=== PATIENT | female | born 1940 | race Caucasian/White ===

== ENCOUNTER 2018-12-07 14:39 | Outpatient (RCR) | payer MEDICARE | END 2019-01-08 09:28 | disposition home or self-care (01) | PROVIDERS: ATTEND Obstetrics & Gynecology | DX: M79.18 Myalgia, other site (principal); N39.46 Mixed incontinence ==

== ENCOUNTER 2020-06-27 13:31 | Outpatient (RCR) | payer MEDICARE, BC | END 2020-06-27 17:08 | disposition home or self-care (01) | PROVIDERS: ATTEND Obstetrics & Gynecology | DX: M79.18 Myalgia, other site (principal); N34.3 Urethral syndrome, unspecified; R39.9 Unspecified symptoms and signs involving the genitourinary system; R39.14 Feeling of incomplete bladder emptying ==

== ENCOUNTER 2021-08-19 20:06 | Emergency (ER) | payer MEDICARE, BC ==
[~2021-08-19] VITALS: Ht 165 cm; Wt 84.0 kg
[2021-08-19 20:41] LABS: BASOPHILS # (AUTO) 0.1 10^3/uL (0.0-0.1); BASOPHILS % (AUTO) 1 % (0-10); EOSINOPHILS # (AUTO) 0.2 10^3/uL (0.0-0.3); EOSINOPHILS % (AUTO) 3 % (0-10); HEMATOCRIT 42 % (35-52); HEMOGLOBIN 13.9 g/dL (11.5-16.0); LYMPHOCYTES % (AUTO) 31 % (12-44); MEAN CORPUSCULAR HEMOGLOBIN 29 pg (25-34); MEAN CORPUSCULAR HGB CONC 33 g/dL (32-36); MEAN CORPUSCULAR VOLUME 87 fL (80-99); MEAN PLATELET VOLUME 9.3 fL (9.0-12.2); MONOCYTES # (AUTO) 0.9 10^3/uL (0.0-1.0); MONOCYTES % (AUTO) 14 % (0-12); NEUTROPHILS # (AUTO) 3.2 10^3/uL (1.8-7.8); NEUTROPHILS % (AUTO) 51 % (42-75); PLATELET COUNT 351 10^3/uL (130-400); WHITE BLOOD COUNT 6.3 10^3/uL (4.3-11.0)
--- NOTE | 2021-08-19 21:01 | ED Cardiac General ---
History of Present Illness General Chief Complaint: Cardiac/General Problems Stated Complaint: HIGH BLOOD PRESSURE Nursing Triage Note: TO ED VIA POV AND AMBULATORY TO ROOM 6 WITH C/O HIGH BLOOD PRESSURE. PT STATES IT HAS BEEN HIGH SINCE BROTHER IN FROM HEART ATTACK. PT VERY ANXIOUS ABOUT BP AND HAVING A STROKE. STATES SHE HAS BEEN SEEING "DR. PAYNE" IN [facility] AND HE HAS BEEN ADJUSTING BP MEDS. PT SEES DR. AU FOR CARDIOLOGY IN [place], [place] BUT HAS NOT BEEN SEEN RECENTLY FOR BP WITH CARDIO. Source: patient Exam Limitations: no limitations History of Present Illness Date Seen by Provider: Aug 19, 2021 Time Seen by Provider: 20:39 Initial Comments This is a 81-year-old female who presented to the ER with concerns of elevated blood pressure. States she has been having increasing problems with her blood pressure. Had been taking Losartan 100mg PO daily. States she was recently taken off her Losartan and started on propanolol 40 mg p.o. twice daily 3 weeks ago. Was recently switched from Proponolol to Coreg 6.25 mg p.o. twice daily yesterda y. States that her blood pressure is continuing to elevate despite taking her antihypertensives. She was also given clonidine 0.1 mg p.o. every 6 as needed. States that whenever she takes a clonidine her blood pressure will drop to around SBP 140s however it spikes right back up. States that her brother just in June from a heart attack and her father has in the past from a stroke. High blood pressure runs in her family and she is concerned that she is going to have a heart attack or stroke if her blood pressure continues to stay this high. Has no physical complaints at this time. Allergies and Home Medications Allergies Coded Allergies: codeine (Verified Adverse Reaction, Unknown, Nausea, 08/19/21) Uncoded Allergies: PENICILLIN (Allergy, Unknown, Hives, 08/19/21) Patient Home Medication List Home Medication List Reviewed: Yes Review of Systems Review of Systems Constitutional: no symptoms reported EENTM: No Symptoms Reported Respiratory: No Symptoms Reported Cardiovascular: No Symptoms Reported Gastrointestinal: No Symptoms Reported Genitourinary: No Symptoms Reported Musculoskeletal: no symptoms reported Skin: no symptoms reported Psychiatric/Neurological: Headache (occasionally ) Endocrine: No Symptoms Reported Hematologic/Lymphatic: No Symptoms Reported Past Fxdcdjk-Dngitn-Rxrpof Hx Patient Social History Tobacco Use?: No Substance use?: No Alcohol Use?: Yes Alcohol Frequency: Once in a while Pt feels they are or have been: No Immunizations Up To Date COVID19 Vaccine Tool Room Machinist: MODERNAbby Past Medical History Surgery/Hospitalization HX: HTN ORTHO HYSTERECTOMY Physical Exam Vital Signs Vital Signs - First Documented 08/19/21 20:13 Temp 36.0 Pulse 74 Resp 20 B/P (MAP) 206/115 (145) Pulse Ox 99 O2 Delivery Room Air Capillary Refill : Less Than 3 Seconds Height, Weight, BMI Height: '" Weight: lbs. oz. kg; 30.00 BMI Method: General Appearance: No Apparent Distress, Anxious HEENT: PERRL/EOMI, Normal ENT Inspection, Pharynx Normal Neck: Full Range of Motion, Normal Inspection, Supple; No Carotid Bruit Respiratory: Lungs Clear, Normal Breath Sounds, No Accessory Muscle Use, No Respiratory Distress Cardiovascular: Regular Rate, Rhythm, No Edema, Normal Peripheral Pulses Gastrointestinal: Normal Bowel Sounds, No Organomegaly, Non Tender, Soft Extremity: Normal Capillary Refill, Normal Inspection, Normal Range of Motion Neurologic/Psychiatric: Alert, Oriented x3, No Motor/Sensory Deficits, Normal Mood/Affect, curtain roller assembler II-XII Norm as Tested Skin: Normal Color, Warm/Dry Progress/Results/Core Measures Results/Orders Lab Results Laboratory Tests Test 08/19/21 20:35 Range/Units White Blood Count 6.3 4.3-11.0 10^3/uL Red Blood Count 4.81 3.80-5.11 10^6/uL Hemoglobin 13.9 11.5-16.0 g/dL Hematocrit 42 35-52 % Mean Corpuscular Volume 87 80-99 fL Mean Corpuscular Hemoglobin 29 25-34 pg Mean Corpuscular Hemoglobin Concent 33 32-36 g/dL Red Cell Distribution Width 13.0 10.0-14.5 % Platelet Count 351 130-400 10^3/uL Mean Platelet Volume 9.3 9.0-12.2 fL Immature Granulocyte % (Auto) 0 % Neutrophils (%) (Auto) 51 42-75 % Lymphocytes (%) (Auto) 31 12-44 % Monocytes (%) (Auto) 14 H 0-12 % Eosinophils (%) (Auto) 3 0-10 % Basophils (%) (Auto) 1 0-10 % Neutrophils # (Auto) 3.2 1.8-7.8 10^3/uL Lymphocytes # (Auto) 2.0 1.0-4.0 10^3/uL Monocytes # (Auto) 0.9 0.0-1.0 10^3/uL Eosinophils # (Auto) 0.2 0.0-0.3 10^3/uL Basophils # (Auto) 0.1 0.0-0.1 10^3/uL Immature Granulocyte # (Auto) 0.0 0.0-0.1 10^3/uL Sodium Level 133 L 135-145 MMOL/L Potassium Level 3.9 3.6-5.0 MMOL/L Chloride Level 101 98-107 MMOL/L Carbon Dioxide Level 20 L 21-32 MMOL/L Anion Gap 12 5-14 MMOL/L Blood Urea Nitrogen 16 7-18 MG/DL Creatinine 1.15 0.60-1.30 MG/DL Estimat Glomerular Filtration Rate 46 BUN/Creatinine Ratio 14 Glucose Level 99 70-105 MG/DL Calcium Level 9.4 8.5-10.1 MG/DL Corrected Calcium 9.4 8.5-10.1 MG/DL Total Bilirubin 0.5 0.1-1.0 MG/DL Aspartate Amino Transf (AST/SGOT) 16 5-34 U/L Alanine Aminotransferase (ALT/SGPT) 14 0-55 U/L Alkaline Phosphatase 60 40-136 U/L Total Protein 6.9 6.4-8.2 GM/DL Albumin 4.0 3.2-4.5 GM/DL My Orders Orders - PRECIOUS PINA AUTO PARTS SALESPERSON Cbc With Automated Diff (08/19/21 20:31) Comprehensive Metabolic Panel (08/19/21 20:31) Ekg Tracing (08/19/21 20:31) Lorazepam Injection (Ativan Injection) (08/19/21 21:15) Medications Given in ED Vital Signs/I&O 08/19/21 08/19/21 20:13 23:17 Temp 36.0 36.0 Pulse 74 69 Resp 20 16 B/P (MAP) 206/115 (145) 164/88 Pulse Ox 99 100 O2 Delivery Room Air Room Air Blood Pressure Mean: 145 Progress Progress Note : Progress Note Patient examined, appears very anxious at this time. Discussed treating her with a little bit of anxiety medication and then checking to see if we need to add anything for her blood pressure. BP is 206/115 at this time. Will obtain basic labs and EKG. She is agreeable with this plan. EKG is sinus rhythm, no ST elevation or depression appreciated. Her labs are unremarkable. After given Ativan 0.5 mg IV push she appears more relaxed. Also discussed with her that her primary care provider was likely adding the beta- krunal to her current antihypertensive regimen, and she should be taking her Losartan along with her Coreg. Went ahead and had patient take her losartan 100 mg and Coreg 6.25 mg p.o. now here in the ER. We will continue to monitor her blood pressure. Systolic Blood pressure decreased to around 140 while at rest. Discharge plan of care discussed with patient and recommendations for close follow-up with her primary care provider, additionally may benefit from a renal ultrasound as she has not had this yet, and would like her to take her losartan daily along with her Coreg twice daily and continue to monitor her blood pressure. Discussed that her BP could also be related to stress and anxiety especially with the recent of her brother. States that she agrees with this as she has tended to fixate on her blood pressure since his passing. Initial ECG Impression Date: Aug 19, 2021 Initial ECG Impression Time: 20:36 Initial ECG Rate: 64 Initial ECG Rhythm: Normal Sinus Initial ECG Impression: Normal Departure Impression Primary Impression: Hypertension Additional Impression: Anxiety Disposition: 01 HOME, SELF-CARE Condition: Improved Departure-Patient Inst. Decision time for Depature: 22:53 Referrals: ALLISON MADRID DO (PCP) Primary Care Physician Patient Instructions: High Blood Pressure ED Add. Discharge Instructions: Plan: 1. Call your doctor tomorrow to schedule close follow up. 2. Take your Losartan every evening and your Coreg twice a day. Check your blood pressure twice a day and keep a log. 3. You may benefit from a renal ultrasound to further evaluate your hypertension. 4. Limit your foods with salt. You can choose foods that are "low sodium". 5. Return to ER for any new, concerning, or worsening symptoms. All discharge instructions reviewed with patient and/or family. Voiced understanding. PRECIOUS PINA APRN Aug 19, 2021 21:01
[2021-08-19 21:10] LABS: POTASSIUM 3.9 MMOL/L (3.6-5.0)
[2021-08-19 21:12] LABS: CALCIUM 9.4 MG/DL (8.5-10.1)
[2021-08-19 21:13] LABS: TOTAL PROTEIN 6.9 GM/DL (6.4-8.2)
[2021-08-19 21:15] LABS: BILIRUBIN,TOTAL 0.5 MG/DL (0.1-1.0)
[2021-08-19] MEDS ORDERED: LORazepam INJ 2 MG/ML (ATIVAN) VIAL IVP ONE (21:15)
[2021-08-19 21:16] LABS: CREATININE SERUM 1.15 MG/DL (0.60-1.30)
[2021-08-19 23:17] VITALS: BP 164/88
--- OUTSIDE RECORDS SUMMARY | 2021-08-24 10:19 | XMS REPORT ---
Author Leticia Rodas Organization [facility] Address [address] [place], [place] [id number] Care Team Providers Care Electrical Control Assembler Name Role Phone ISHA PINA PCP ISHA PINA PreferredProvider Allergies and Adverse Reactions Not available. Plan of Treatment Not available. Medications Active Name Start Date Estimated Completion Date SIG Co mments fluticasone propionate 50 mcg/actuation nasal spray,suspension 1 10/27/2019 spray 1 spray (50 mcg) in each nostril by intranasal route once daily propranolol 40 mg oral tablet 08/06/2021 09/05/2021 ta ke 1 tablet (40 mg) by oral route 2 times per day for 30 days PROPRANOLOL 40MG TABLETS 08/06/2021 05/03/2022 TAKE 1 TABLET(40 MG) BY MOUTH TWICE DAILY Problem List Description Status Onset Essential hypertension Active 08/06/2021 Family history of heart disease Active 08/06/20 21 Primary insomnia Active 08/06/2021 Vital Signs Date Time BP-Sys(mm[Hg] BP-Marline(mm[Hg]) HR(bpm) RR(rpm) Temp WT HT HC BMI BSA BMI Percentile O2 Sat(%) 08/05/2021 3:33:00 PM 186 mm[Hg] 100 mm[Hg] 70 {beats}/min 18 rpm 98 F 1 87 lbs 98 % Social History Not available. History of Procedures Date Ordered Description Order Status 04/16/2020 12:00 AM SARS-CoV-2 non-CDC lab test Returned 11/14/2020 12:00 AM Moderna Covid-19 Vaccine Reviewed 12/12/2020 12:00 AM Moderna Covid-19 Vaccine Reviewed 08/07/2021 12:00 AM COMPLETE CBC W/AUTO DIFF WBC Returned 08/07/2021 12:00 AM COMPREHEN METABOLIC PANEL Returned 08/07/2021 12:00 AM LIPID PANEL Returned 08/07/2021 12:00 AM COLLECTION VENOUS BLOOD VENIPUNCTURE Rev iewed 08/07/2021 12:00 AM ASSAY THYROID STIM HORMONE Returned Results Summary Not available. History Of Immunizations Name Date Admin Mfg Name Mfg Code Trade Name Lot# Route Inj Vis Given Vis Pub CVX Covid-19 11/14/2020 [employer] MOD Moderna COVID-19 Vaccin e [id number] Intramuscular Left Deltoid 11/14/2020 09/02/2020 207 Covid-19 12/12/2020 Moderna [employer] MOD Moderna COVID-19 Vaccin e [id number] Intramuscular Left Deltoid 12/12/2020 09/02/2020 207 History of Past Illness Name Date of Onset Comments Essential hypertension 08/06/2021 Family history of heart disease 08/06/2021 Primary insomnia 08/06/2021 Close exposure to severe acute respiratory syndrome co ronavirus 2 (SARS-CoV-2) Apr 16 2020 9:28AM Nasal congestion Aug 27 2020 8:23AM Encounter for administration of COVID-19 vaccine Nov 14 2020 12:31PM Encounter for administration of COVID-19 vaccine Dec 12 2020 11:38AM Establishing care with new doctor, encounter for Aug 05 2021 3:35PM Essential hypertension Aug 05 2021 3:35PM Family history of heart disease Aug 05 2021 3:35PM Mild Acute Tremor of both hands Aug 05 2021 3:35PM Primary insomnia Aug 05 2021 3:35PM Care plan discussed with patient Aug 05 2021 3:35PM Tremor Aug 07 2021 9:43AM Hypertension Aug 07 2021 9:43AM Hyperlipemia Aug 07 2021 9:43AM Payers Insurance Name Company Name Plan Name Plan Number Policy Number Liban cy Group Number Start Date Medicare RHC Medicare RHC [id number] N/ A [facility] [id number] N/ A Medicare Part A Medicare - Lab/Xray [id number] N/A Medicare Part B Medicare Of [place] [id number] N/A History of Encounters Visit Date Visit Type Provider 08/07/2021 Laboratory ISHA RUEDA 08/05/2021 Office visit ISHA RUEDA 12/12/2020 Nurse visit ISHA RUEDA 11/14/2020 Nurse visit ISHA RUEDA 08/27/2020 Office visit John Clark PHARMACY TECHNICIAN PROGRAM DIRECTOR 04/16/2020 Nurse visit Tanya PARIKH RN 07/26/2016 Osmar Jaimes MD
--- OUTSIDE RECORDS SUMMARY | 2021-08-24 10:19 | XMS REPORT ---
Author Leticia Rodas [facility] Address [address] [place], [place] [address] Care Team Providers Care Electronic Page Makeup System Operator Name Role Phone ISHA PINA PCP Allergies and Adverse Reactions Not available. Plan of Treatment Not available. Medications Active Name Start Date Estimated Completion Date SIG Co mments fluticasone propionate 50 mcg/actuation nasal spray,suspension 1 10/27/2019 spray 1 spray (50 mcg) in each nostril by intranasal route once daily propranolol 40 mg oral tablet 08/05/2021 09/04/2021 ta ke 1 tablet (40 mg) by oral route 2 times per day for 30 days Problem List Description Status Onset Essential hypertension [...] 12/12/2020 12:00 AM Moderna Covid-19 Vaccine Reviewed Results Summary Not available. History Of Immunizations Name Date Admin Mfg Name Mfg Code Trade Name Lot# Route Inj Vis Given Vis Pub CVX Covid-19 11/14/2020 Moderna [employer] MOD Moderna COVID-19 Vaccin e [id number] Intramuscular Left Deltoid 11/14/2020 09/02/2020 207 Covid-19 12/12/2020 [employer] MOD Moderna COVID-19 Vaccin e [id number] Intramuscular Left Deltoid 12/12/2020 09/02/2020 207 History [...] discussed with patient Aug 05 2021 3:35PM Payers Insurance Name Company Name Plan Name Plan Number Policy Number Liban cy Group Number Start Date Medicare RHC Medicare RHC [id number] N/ [id number] N/ A Medicare Part A Medicare - Lab/Xray [id number] N/A Medicare Part B Medicare Of [place] [id number] N/A History of Encounters Visit Date Visit Type Provider 08/05/2021 Office visit ISHA RUEDA 12/12/2020 Nurse visit ISHA RUEDA 11/14/2020 Nurse visit ISHA RUEDA 08/27/2020 Office visit John Clark POLE LIFT OPERATOR 04/16/2020 Nurse visit Tanya PARIKH RN 07/26/2016 Osmar Jaimes MD
--- OUTSIDE RECORDS SUMMARY | 2021-08-24 10:19 | XMS REPORT ---
Author Leticia Rodas [facility] Address [address] [place], [place] [id number] Care Team Providers Care Transcriptionist Name Role Phone ISHA PINA PCP ISHA PINA PreferredProvider Allergies and Adverse Reactions Not available. Plan of Treatment Planned Activity Comments Planned Date Planned Time Plan/Goal CBC with Differential 08/07/2021 12:00 AM CMP 08/07/2021 12:00 AM Lipid Blood Profile 08/07/2021 12:00 AM TSH W/RFLX T4 FREE 08/07/2021 12:00 AM Medications Active Name Start Date Estimated Completion [...] Moderna Covid-19 Vaccine Reviewed 08/07/2021 12:00 AM COLLECTION VENOUS BLOOD VENIPUNCTURE Rev iewed Results Summary Not available. History Of Immunizations Name Date Admin Mfg Name Mfg Code Trade Name Lot# Route Inj Vis Given Vis Pub CVX Covid-19 11/14/2020 [employer] MOD Moderna COVID-19 Vaccin e [id number] Intramuscular Left Deltoid 11/14/2020 09/02/2020 207 Covid-19 12/12/2020 [employer] MOD Moderna COVID-19 Vaccin e [id number] Intramuscular Left Deltoid 12/12/2020 09/02/2020 207 History [...] Number Start Date Medicare RHC Medicare RHC [id number] N/ A [facility] [id number] N/ A Medicare Part A Medicare - Lab/Xray [id number] N/A Medicare Part B Medicare Of [place] [id number] N/A History of Encounters Visit Date Visit Type Provider 08/07/2021 Laboratory ISHA RUEDA 08/05/2021 Office visit ISHA RUEDA 12/12/2020 Nurse visit ISHA RUEDA 11/14/2020 Nurse visit ISHA PINA PA 08/27/2020 Office visit John Clark MODERN DANCER 04/16/2020 Nurse visit Tanya PARIKH RN 07/26/2016 Osmar Jaimes MD
--- OUTSIDE RECORDS SUMMARY | 2021-08-24 10:19 | XMS REPORT | Clinical Summary ---
Author Author [facility] Organization [facility] Address Unknown Phone Unavailable Care Team Providers Care Steel Fixer Name Role Phone PCP Unavailable Allergies Not on File Medications End Date Status Medication Sig Dispensed Refills Start Date Active estradiol (VAGIFEM) 10 insert 1 0 01 mcg Tab tablet 1 (10MCG) by vaginal route every day for 14 days then 1 tablet (10 mcg) 2 times per week for duration of use Active lisinopril take 1 tablet 0 (PRINIVIL,ZESTRIL) 20 MG (20MG) by 1 tablet oral route every day Active desvenlafaxine succinate take 1 tablet 0 10/08 (PRISTIQ) 50 MG 24 hr (50MG) by 1 tablet oral route every day Active eszopiclone (LUNESTA) 3 take 1 tablet 0 mg tablet (3MG) by 1 oral route every day at bedtime Active Problems Problem Noted Date Edema 11/08/2011 Hypercapnia 11/08/2011 Memory loss 07/07/2011 Postmenopausal atrophic vaginitis 12/22/2010 Gastric ulcer 10/07/2010 Overview: Formatting of this note might be differ ent from the original. ICD-10 conversion Major depressive disorder, single episode 08/25/2010 Overview: Formatting of this note might be differ ent from the original. ICD-10 conversion Myalgia and myositis 02/13/2010 Overview: Formatting of this note might be differ ent from the original. ICD-10 conversion Osteoarthritis 02/13/2010 Overview: Formatting of this note might be differ ent from the original. ICD-10 conversion Insomnia 02/13/2010 Overview: Formatting of this note might be differ ent from the original. ICD-10 conversion Immunizations Name Administration Dates Next Due Influenza, seasonal, 08/25/2010, 09/22/2009 injectable, preservatie free (IIV3). 15 = Influenza TIV Pneumococcal 08/03/2008 Polysaccharide 23-Valent See Comments 09/22/2009 Td 01/31/2007 Family History Medical History Relation Name Comments Prostate cancer Father Prostate Cancer; Hypertension Mother Hypertension; Lung cancer Mother Lung Cancer; Stroke Mother Stroke Syndrome; Deep vein thrombosis Paternal Venous Thrombosis Of The Deep Vessels Of The Grandfather Distal Lower Extremity; Relation Name Status Comments Father Cause of was [place] at age 91. (Age 91) Mother Cause of was Cancer at age 91. (Age 91) Paternal Grandfather Social History Date Tobacco Use Types Packs/Day Years Used Never Smoker Sex Assigned at Date Recorded Not on file Last Filed Vital Signs Reading Time Taken Comments Vital Sign 112/72 11/08/2011 1:53 PM FLAKER TENDER Blood Pressure 89 11/08/2011 1:53 PM FLAKER TENDER Pulse 36.8 C (98.2 F) 11/08/2011 1:53 PM FLAKER TENDER Temperature - - Respiratory Rate 98% 11/08/2011 1:53 PM FLAKER TENDER Oxygen Saturation - - Inhaled Oxygen Concentration 90.7 kg (200 lb) 02/18/2011 4:22 PM CDT Weight 166.4 cm (5' 5.5") 07/07/2011 9:59 AM CDT Height 33.28 02/18/2011 4:22 PM CDT Body Mass Index Plan of Treatment Health Maintenance Due Date Last Done Comments Zoster Vaccine# (1 of 2) 1992 Fall Risk Assessment # 2007 Osteoporosis Screening 09/03/2013 09/03/2008 Td/Tdap# 01/31/2017 01/31/2007 Influenza Vaccine (#1) 2021 08/25/2010, 09/22/2009 Pneumococcal Vaccine: 65+ Completed 08/03/2008 Years Results Not on filefrom Last 3 Months Advance Directives For more information, please contact: [phone] Patient Museum Specialist Explanation Type Date Recorded Health Care 01/15/2014 2:21 AM Directive
== END 2021-08-19 23:27 | disposition home or self-care (01) ==
LOC: EDUNIT# 20:06 → ER 20:07
DX: I10 Essential (primary) hypertension (principal); F41.9 Anxiety disorder, unspecified
CPT/HCPCS: 36415; 80053; 85025; 93005